=== PATIENT | female | born 1965 | race Caucasian/White ===

== ENCOUNTER 2017-02-17 07:38 | Emergency (ER) | payer BC ==
[2017-02-17] MEDS ORDERED: KETOROLAC TROMETHAMINE 60 MG/2 ML VIAL IM ONE (07:44)
--- NOTE | 2017-02-17 07:48 | PDOC ---
History of Present Illness - General Chief Complaint: Pain, Acute Stated Complaint: INJURED LEFT WRIST TRIP AND FALL Time Seen by Provider: 02/17/17 07:44 - History of Present Illness Initial Comments: 02/17/17 07:45 Chief complaint: Left wrist injury History of present illness: The patient tripped and fell and immediately [employer], injuring her left wrist. She has pain and swelling of the wrist with no distal numbness tingling weakness or limited motion of the hand or digits. Review of systems: Denies any other injury. Specifically, denies pain or injury to the head neck chest abdomen pelvis spine or other extremities. Past medical history: Psoriatic arthritis, breast cancer in remission. Receives biological therapy for her psoriatic arthritis. Social/family history reviewed and noncontributory Physical exam: Alert and oriented 3, well-developed well-nourished, moderate pain due to wrist injury. Completely cooperative Afebrile, vital signs stable Head atraumatic. PERRLA, fundi benign, ENT clear Neck without tenderness or deformity, full range of motion without pain Chest clear to P&A, full breath sounds bilaterally, no rib cage or chest wall tenderness or deformity CV S1 and S2 normal without murmur rub or gallop pulses full and symmetric no JVD or edema Abdomen benign No pelvic or spine trauma. Neurological C2 to 12 intact. No focal sensory or motor deficits. Gait stable and unimpaired. Extremities: There is tenderness of the left wrist over the distal radius and a mild deformity. There is mild swelling. Pulses are full. There is full tendon function to all 5 digits and no distal sensory deficits. There is no pain or tenderness in the forearm elbow upper arm or shoulder. Impression: Probable wrist fracture. No other significant injuries Plan: X-ray and further orthopedic management, analgesia as needed. Past History - Past Medical History Allergies/Adverse Reactions: Allergies Allergy/AdvReac Type Severity Reaction Status Date / Time oxycodone Allergy Unknown Verified 09/21/16 17:10 Home Medications: Ambulatory Orders Folic Acid - 1 mg PO DAILY 10/31/14 Methotrexate Sodium/Pf [Methotrexate 50 mg/2 ml Vial] 30 mg IJ WEEKLY 10/31/14 Budesonide/Formeterol Fumarate [SYMBICORT 160/4.5mcg -] 1 inh IH DAILY PRN 09/21 Certolizumab Pegol [Cimzia] 200 mg SQ ASDIR 09/21/16 Hydrochlorothiazide [Hctz -] 50 mg PO DAILY 09/21/16 Anemia: No Asthma: Yes Cancer: Yes (Left Breast) Cardiac Disorders: No CVA: No COPD: Yes CHF: No Dementia: No Diabetes: No GI Disorders: No Disorders: No HTN: Yes Hypercholesterolemia: No Liver Disease: No Seizures: No Thyroid Disease: No - Surgical History Abdominal Surgery: No Appendectomy: No Cardiac Surgery: No Cholecystectomy: No Lung Surgery: No Neurologic Surgery: No Orthopedic Surgery: Yes (Left Knee Arthroscopy, 2009 Laminectomy and Microdiscectomy) - Psycho/Social/Smoking Cessation Hx Anxiety: No Suicidal Ideation: No Smoking History: Former smoker Have you smoked in the past 12 months: No If you are a former smoker, when did you quit?: 2010 Hx Alcohol Use: No Drug/Substance Use Hx: No Substance Use Type: None Hx Substance Use Treatment: No ED Treatment Course - RADIOLOGY Radiology Studies Ordered: Category Date Time Status WRIST-LEFT [RAD] Stat Radiology 02/17/17 07:44 Ordered Medical Decision Making - Medical Decision Making 02/17/17 09:58 X-ray shows a comminuted fracture of the distal radius with extension into the joint space. There is mild angulation displacement. Orthopedics contacted. They will see the patient now in their office. Splint maintained. No distal numbness tingling or pain in the fingers, good pulses, good finger motion, and good capillary refill. Discharged in minimal pain to follow-up now as directed. Fully ambulatory and in no distress. *DC/Admit/Observation/Transfer Diagnosis at time of Disposition: Fracture, radius, distal Qualifiers: Encounter type: initial encounter Fracture type: closed Fracture morphology: other intra-articular Laterality: left Qualified Code(s): S52.572A - Other intraarticular fracture of lower end of left radius, initial encounter for closed fracture - Discharge Dispostion Disposition: HOME Condition at time of disposition: Improved Admit: No - Referrals Referrals: Meliton Short MD [Staff Physician] - - Patient Instructions Printed Discharge Instructions: How to Use a Sling, DI for Wrist Fracture Additional Instructions: Arrangements have been made for you to see our orthopedist Dr. Short now in his office. He will recommend further evaluation and treatment. Keep the splint on until seen by Dr Short
[2017-02-17] MEDS ORDERED: KETOROLAC TROMETHAMINE 60 MG/2 ML VIAL ONE (07:56)
[2017-02-17 08:04] VITALS: TEMP 97.6; BMI 23.5
[2017-02-17 08:10] VITALS: PULSE 52
[2017-02-17 08:30] VITALS: BP 118/78
== END 2017-02-17 10:01 | disposition home or self-care (01) ==
LOC: FER 07:38
PROC: 2W3FX1Z Immobilization of Left Hand using Splint (ICD-10-PCS; principal; 2017-02-17)
PROC: 3E0233Z Introduction of Anti-inflammatory into Muscle, Percutaneous Approach (ICD-10-PCS; 2017-02-17)
DX: S52.572A Other intraarticular fracture of lower end of left radius, initial encounter for closed fracture (principal); W18.39XA Other fall on same level, initial encounter; Y93.9 Activity, unspecified; Y92.9 Unspecified place or not applicable; J45.909 Unspecified asthma, uncomplicated; J44.9 Chronic obstructive pulmonary disease, unspecified; I10 Essential (primary) hypertension; Z85.3 Personal history of malignant neoplasm of breast; Z87.891 Personal history of nicotine dependence
CPT/HCPCS: 73110-TC-LT; 99283-25